=== PATIENT | female | born 1985 | race Caucasian/White ===

== ENCOUNTER 2022-10-15 00:12 | Day surgery (SDC) | payer OTHER, SELFPAY ==
[2022-10-07 15:43] VITALS: BMI 28.3
--- NOTE | 2022-10-07 15:49 | SUR.PREOP ---
Report to the Outpatient Waiting Room, entrance under the green pavilion located off [facility], at time 0700 on date 10/15/22. Planned Procedure Time: _0900_. Time changes happen often and if your time is changed the preop area will call you the afternoon before. - You and your visitor will be asked to self-screen and do not enter if you have any COVID symptoms. - A mask is optional within the hospital at this time. Patients may have clear liquids (water, carbonated beverages, clear teas, apple juice) until 3 hours prior to surgery with a maximum of 20 ounces. - No food from midnight until time of surgery before 0600 - Infants may have breast milk until 4 hours before surgery, infant formula 6 hours prior to surgery. - Children will be allowed to drink immediately following surgery. If applicable, please bring a bottle or sippy cup to assist with drinking. Juice, water, soda, and popsicles are readily available. For infants on formula, please bring formula the day of surgery. Pacifiers are allowed. Take the following medications with a SIP of water the morning of surgery: ___n/a DO NOT STOP ANY OF YOUR OTHER PRESCRIPTION MEDICATIONS PRIOR TO SURGERY ?EXCEPT THE FOLLOWING Medications to discontinue per physician ____prenatal vitamin for 3 days Date to take last dose Please no make-up, nail kinyarwanda, hairspray, perfume, deodorant, or body powder the day of surgery. No jewelry (including any body piercings) or valuables the day of surgery, leave them at home. Please take a shower or bath the night before, or the morning of, surgery with an antibacterial soap. Wear comfortable, loose fitting clothing. Children are encouraged to wear pajamas. - Jewelry must be removed prior to entering the operating room. Rings and piercings that are not removed may be cut off. - The hospital will not accept responsibility for valuables. - Please leave all valuables, including medications, at home the day of surgery. If you are going home after surgery, a licensed cdl flatbed truck driver must drive you home. - NO public transportation without another adult if you receive anesthesia. - We recommend that an adult stay with you for 24 hours following discharge. - We also recommend that you do not drive, make important decision, drink alcoholic beverages, or take any drugs that were not prescribed by your health care provider for at least 24 hours after your discharge time. For Pediatric surgeries, we recommend two adults accompany the child home. Follow any additional instructions given to you from your surgeon. If you or anyone in your household have experienced Covid symptoms in the past week, please notify your surgeon or the nurse liaison at the phone number below for possible testing. Telephone instructions given to __patient___and asked if any additional questions and then verbalized understanding. Patient advised to call surgeon office or pre surgery nurse liaison [phone] if any additional questions.
--- NOTE | 2022-10-14 08:10 | WPDANESEPPF ---
Anes - Initial Pre Proc Eval Procedure: Operation Date: 10/15/22 09:00 Proposed Procedures p Hysteroscopy, Dilation and Curettage, Possible Myosure, Mirena Intrauterine Device Insertion - Doris Galaviz DO Date/Time: 10/14/22 08:10 Surgeon: Doris Galaviz DO Pre Op Diagnosis: abn and heavy uterine bleeding Patient Data Age: 37 Gender: F Height: 1.57 m Weight: 70.31 kg Allergies Allergy/AdvReac Type Severity Reaction Status Date / Time No Known Allergies Allergy Verified 10/07/22 15:42 Home Medications Medication Instructions Recorded Confirmed Type cetirizine 10 mg tablet (Zyrtec) 10 mg PO DAILY 10/07/22 10/07/22 History fluticasone propionate 93 2 spray intranasal BID 10/07/22 10/07/22 History mcg/actuation breath activated aerosol (Xhance) vit no.95-ferrous 1 tablet PO DAILY 10/07/22 10/07/22 History fumarate 28 mg-folic acid 800 mcg tablet () Patient hx anesthesia problems: post op nausea/vomiting Family hx anesthesia problems: none Results Review: All pre-operative results and documents have been reviewed as part of the pre-operative evaluation. FOR[facility]LY [facility] Past Medical History Medical History (Updated 10/14/22 @ 08:10 by Malachi Everett DO) PONV (postoperative nausea and vomiting) Seasonal allergies Social History Social History Smoking status: Never smoker Living arrangements: with family Spiritual care concerns: No Anes - Eval Final PreProcedure Day of Procedure 10/14/22 08:10 Patient weight: overweight Heart: regular rate and rhythm Lungs: clear to auscultation Airway: Mallampati scale class II Neurological: alert and oriented Last oral intake: >/= 8 hours ASA classification: II Emergent: no Anesthetic plan: proceed Anesthesia type and monitoring: general GIVS and standard monitoring Results Review: All pre-operative results and documents have been reviewed as part of the pre-operative evaluation. Informed Consent: The patient's anesthetic plan and its attendant risks and benefits were discussed with the patient/family/POA. Questions were solicited and answers provided to the satisfaction of the patient/family/POA.
[2022-10-15] VITALS (8 sets, daily range): BP systolic 109–154; BP diastolic 75–88; PULSE 66–92; RESP 12–16; TEMP 36.8; O2SAT 97–100
--- NOTE | 2022-10-15 07:37 | WPDHPUPDATE1 ---
History and Physical Update Update Date/Time: 10/15/22 07:37 History and Physical has been reviewed, including an updated exam of the patient. There are NO changes in the patient's condition. Risks, benefits, and alternatives have been discussed and questions answered. Patient agrees to proceed with procedure.
--- NOTE | 2022-10-15 07:37 | PM.IMHP ---
H&P: HPI History of Present Illness Date/Time: 10/15/22 07:37 Chief Complaint: I'm here for my D&C and IUD placement Review of Systems Review of Systems: All systems reviewed & are unremarkable except as noted in HPI and below PMFSH Past Medical History Medical History (Updated 10/15/22 @ 07:45 by Doris Galaviz DO) PONV (postoperative nausea and vomiting) Seasonal allergies Social History Social History Smoking status: Never smoker Living arrangements: with family Spiritual care concerns: No Meds Home Medications and Allergies Home Medications Medication Instructions Recorded Confirmed Type cetirizine 10 mg tablet (Zyrtec) 10 mg PO DAILY 10/07/22 10/07/22 History fluticasone propionate 93 2 spray intranasal BID 10/07/22 10/07/22 History mcg/actuation breath activated aerosol (Xhance) vit no.95-ferrous 1 tablet PO DAILY 10/07/22 10/07/22 History fumarate 28 mg-folic acid 800 mcg tablet () Allergies Allergy/AdvReac Type Severity Reaction Status Date / Time No Known Allergies Allergy Verified 10/07/22 15:42 Exam Const: General: comfortable and no acute distress Eyes: General: appearance normal, both eyes and all related structures Resp: Effort & Inspection: normal respiratory effort Auscultation: clear to auscultation bilaterally Cardio: Rate: regular rate Rhythm: regular rhythm GI: GI Palp: Yes Soft to palpation Auscultation: normal bowel sounds Skin: General skin exam: normal color and no rashes or lesions noted Wounds: no wounds Neuro: General: gait normal Speech: normal speech Motor exam (neuro): 5/5 motor strength present throughout Psych: Mental Status: mental status grossly normal Assessment and Plan Assessment and plan (1) Abnormal uterine bleeding: Code(s): N93.9 - Abnormal uterine and vaginal bleeding, unspecified Status: Acute (2) Heavy menstrual bleeding: Code(s): N92.0 - Excessive and frequent menstruation with regular cycle Status: Acute Plan Hysteroscopy, D&C, possible polypectomy, IUD placement
[2022-10-15] MEDS: ACETAMINOPHEN 500 MG TABLET 1000 MG PO (08:00)
[2022-10-15] MEDS: LACTATED RINGERS 1,000 ML 30 ML IV CONT (08:19)
[2022-10-15] MEDS: SCOPOLAMINE 1.5 MG PATCH TRANSDERM (08:19)
[2022-10-15] MEDS: LIDOCAINE HCL 1% LOCAL INJ 20 ML VIAL 10 ML INFILTRATE (09:20)
--- NOTE | 2022-10-15 09:38 | P.OP_ITS ---
Procedure Note - Detailed Date of Procedure 10/15/22 Pre-op Diagnosis Abnormal and heavy uterine bleeding Post-op Diagnosis Same Procedure Performed Hysteroscopy, D&C, polypectomy with [facility] Surgeon Doris Galaviz, Anesthesia None and Other (TIVA) Indications heavy menstrual bleeding, abnormal uterine bleeding Findings Normal-appearing vulva and vaginal canal. Medium-size cervix with good descensus down the vaginal canal. Uterus anteverted and sounded to 8.5 cm. Within the endometrial cavity the endometrium appeared normal, possibly some small scar bands towards the left fundus. Possible polyp near the right anterior lower uterine segment. Description of Procedure The patient was taken to the operating room where she was placed under total IV sedation. She was prepped and draped in the normal sterile fashion in a dorsal lithotomy position. No preoperative antibiotics were indicated. After a time- out was performed a speculum was placed in the vagina. The cervix was grasped with a long Allis clamp and a paracervical block using plain lidocaine was performed. The cervix and uterus were then sounded to 8.5 cm. The endoscope was then introduced and hydrodissection was performed to dilate the cervix. Examination of the endometrial cavity revealed the above-mentioned findings. The medium resectoscope was introduced and the suspected polyp as well as the endometrium was thoroughly thinned and sampled. The scope was then removed. The Mirena IUD was prepped and was placed to the fundus then pulled back half a centimeter. The arms were allowed to open and was placed up to the fundus. The insertion catheter was removed and the strings were trimmed. The Allis and speculum were removed. A small amount of blood was wiped clean of the vagina. All instruments and sponges were correct at the conclusion of the procedure. Estimated Blood Loss 5 IV Fluids 1,000 Drains No Packing No Pathology Yes Complications No immediate complications Condition Stable Disposition PACU
[2022-10-15] MEDS: ONDANSETRON INJ 4 MG/2 ML VIAL IV PUSH (11:06)
== END 2022-10-15 12:10 | disposition home or self-care (01) ==
PROVIDERS: Visit Provider Obstetrics & Gynecology Gynecologic Oncology
PROC: 0U5B8ZZ Destruction of Endometrium, Via Natural or Artificial Opening Endoscopic (ICD-10-PCS; CPT 58563; principal; 2022-10-15 09:00)
DX: N93.9 Abnormal uterine and vaginal bleeding, unspecified (principal); N92.0 Excessive and frequent menstruation with regular cycle
CPT/HCPCS: 58558; 88305; A9270; J1885; J2250; J2405; J2704; J3010; J7120